=== PATIENT | male | born 1995 | race Caucasian/White ===

== ENCOUNTER 2016-08-25 19:07 | Emergency (ER) | payer OTHER, SELFPAY ==
--- NOTE | ~2016-08-25 | ER ---
PATIENT'S NAME: ASHLEY [facility]AVARRI[facility] AGE: 20 Y [address] ROOM: [place] [address] LOCATION: [facility] ADMIT DATE: 08/25/2016 ER/Outpatient Report DISCHARGE DATE: 08/25/2016 FAMILY PHYSICIAN: Yuan Velazquez MD ATTENDING PHYSICIAN: Nikolas Gordon Time of Arrival: 1911 hours. Time of Evaluation: 1930 hours. CHIEF COMPLAINT: Vomiting and weakness. HISTORY OF PRESENT ILLNESS: The patient states had the stomach flu 2 weeks ago and then got a head cold after that. He was feeling better. Within the last 24 hours, he started to throwing up again. Reports he has vomited at least 6 times in the past 24 hours. Continues to be nauseated. He has had chills. He has a headache that started today. Headache is a 6/10. Last bowel movement was today. It was normal. He has not had any diarrhea. States he has had some generalized abdominal discomfort. ALLERGIES: AUGMENTIN. CURRENT MEDICATIONS: Ibuprofen p.r.n., last took at 2:30 this afternoon. PAST MEDICAL HISTORY: As stated above. PAST SURGERIES: Appendectomy. SOCIAL HISTORY: Lives at home with parents. Denies use of tobacco or drugs. Drinks occasionally. REVIEW OF SYSTEMS: All negative other than those mentioned in the HPI. PHYSICAL EXAMINATION: VITAL SIGNS: He states he is 5 feet 10 inches, weight is 75.9 kg, blood pressure is 137/77, pulse is 70, respirations 16, temperature of 98 tympanic, O2 saturation is 96% on room air. GENERAL: He is awake, alert, and oriented x4. PATIENT'S NAME: ASHLEY CHAVARRIA [facility] AGE: 20 Y [address] ROOM: [place] [address] LOCATION: [facility] ADMIT DATE: 08/25/2016 ER/Outpatient Report DISCHARGE DATE: 08/25/2016 FAMILY PHYSICIAN: Yuan Velazquez MD ATTENDING PHYSICIAN: Nikolas Gordon SKIN: His skin is pink, warm, and dry. RESPIRATIONS: Even and nonlabored. HEENT: Pupils are equal and reactive. NEURO: Cranial nerves 2 through 12 are grossly intact. LUNGS: Lung sounds are clear throughout. HEART: Regular rate and rhythm. ABDOMEN: Soft and nondistended. Bowel sounds are present. He does have small pouching hernia type at the appendectomy incision. It is not painful to palpate. He is tender to palpate over the epigastric area. EMERGENCY DEPARTMENT COURSE: Saline lock was initiated with fluids of normal saline started at a wide-open rate. He was given Zofran 4 mg IV. Lab work was obtained. CBC was within normal limits. Chem panel is within normal limits. The patient reports after the fluids that he is feeling much better. Denies having any headache or discomfort at this time. IMPRESSION: Gastroenteritis. PLAN: Home, rest. Clear liquid fluids. Gradually increase his diet. Avoid milk products for the next 2 to 3 days. Tylenol or ibuprofen as needed for discomfort or fever. Should follow up with primary doctor in 2 to 3 days if symptoms persist. Welcome to come back to the ER if needed. Mom verbalized understanding. SCOOBY ALCARAZ APRN FOR MD TERRELL SOLIS/mariola /[id number] d: 08/26/160 t: 08/28/160, OUTPATIENT REPORT
[2016-08-25 19:47] LABS: BASOPHIL % 0.3 %; HEMATOCRIT 44.5 % (37.0-53.0); HEMOGLOBIN 15.6 g/dL (12.0-17.0); IMMATURE GRANULOCYTE % 0.3 %; LYMPHOCYTE % 9.9 %; MCH 28.9 pg (27.0-34.0); MCHC 35.1 gm/dL (32.0-36.5); MCV 82.6 fl (83.0-98.0); MONOCYTE # 0.5 K/uL (0.0-1.0); MONOCYTE % 4.6 %; MPV 9.1 fl (9.4-12.4); NEUTROPHIL # (ANC) 8.6 K/uL (1.4-9.0); NEUTROPHIL % 84.9 %; NRBC % 0 /100WBC (0-0.00); PLATELET COUNT 301 K/uL (150-450); RBC 5.39 M/uL (4.00-6.00); RDW-CV 10.9 % (11.9-14.6); WBC 10.1 K/uL (4.0-11.0)
[2016-08-25 20:03] LABS: ALBUMIN 4.5 gm/dL (3.5-5.0); ALK PHOS 100 IU/L (33-138); ALT 33 IU/L (12-78); ANION GAP 13.9 (10.0-19.0); AST 22 IU/L (10-40); BLOOD UREA NITROGEN 12 mg/dL (6-24); CALCIUM 9.4 mg/dL (8.5-10.5); CHLORIDE 105 mMol/L (96-110); CO2 24 mMol/L (22-32); CREATININE 0.9 mg/dL (0.6-1.3); ESTIMATED GFR (MDRD EQUATION) > 60; POTASSIUM 3.9 mMol/L (3.7-5.1); SODIUM 139 mMol/L (135-145); TOTAL BILIRUBIN 0.5 mg/dL (0.0-1.5); TOTAL PROTEIN 8.4 g/dL (6.0-8.4)
== END 2016-08-25 20:53 | disposition disaster alternative care site (69) ==
LOC: GMED 19:07
PROVIDERS: Emergency Medicine
DX: K52.9 Noninfective gastroenteritis and colitis, unspecified (principal); Z88.8 Allergy status to other drugs, medicaments and biological substances; Z90.49 Acquired absence of other specified parts of digestive tract
CPT/HCPCS: J2405; J7030